=== PATIENT | female | born 1935 | race Caucasian/White ===

== ENCOUNTER 2021-07-22 20:50 | Emergency (ER) | payer MEDICARE ==
[~2021-07-22] VITALS: Ht 157.5 cm; Wt 65.0 kg
[~2021-07-22 20:50] MED LIST: LEVO25TA2 PO
[2021-07-22 21:13] VITALS: BP 153/68
[2021-07-22 21:50] LABS: BASOPHILS % (AUTO) 0.3 % (0-1); EOSINOPHILS % (AUTO) 0 % (0-6); HEMATOCRIT 40.3 % (35.0-45.0); HEMOGLOBIN 13.6 g/dl (12.0-16.0); LYMPHOCYTES # (AUTO) 0.4 X10'3 (1.1-4.8); LYMPHOCYTES % (AUTO) 8.5 % (21-51); MEAN CORPUSCULAR HEMOGLOBIN 30.3 PG (27.0-31.0); MEAN CORPUSCULAR HGB CONC 33.7 g/dL (33.0-36.5); MEAN CORPUSCULAR VOLUME 89.8 FL (78-98); MEAN PLATELET VOLUME 8.3 FL (7.4-10.4); MONOCYTES # (AUTO) 0.5 X10'3 (0-0.9); MONOCYTES % (AUTO) 10.3 % (2-12); NEUTROPHILS % (AUTO) 80.9 % (42-75); PLATELET COUNT 111 X10'3 (140-440); RED BLOOD COUNT 4.48 X10'6 (4.20-5.60); RED CELL DISTRIBUTION WIDTH 14.8 % (11.5-14.5); WHITE BLOOD COUNT 4.9 X10'3 (4.5-11.0)
[2021-07-22] MEDS ORDERED: normal saline 1000ML IV soln IVB ONE (21:55)
[2021-07-22 22:04] LABS: ALANINE AMINOTRANSFERASE 13 U/L (12-78); ALBUMIN 3.2 G/DL (3.4-5.0); ALBUMIN/GLOBULIN RATIO 0.7 (1.1-1.5); ALKALINE PHOSPHATASE 84 IU/L (46-116); ANION GAP 3 (8-16); ASPARTATE AMINO TRANSFERASE 25 U/L (10-37); BILIRUBIN,TOTAL 0.3 MG/DL (0.1-1.0); BLOOD UREA NITROGEN 25 MG/DL (7-18); BUN/CREATININE RATIO 19.7 (6.6-38.0); CALCIUM 8.7 MG/DL (8.5-10.1); CHLORIDE 97 MMOL/L (99-107); CREATININE 1.27 MG/DL (0.40-0.90); GLUCOSE 157 MG/DL (70-104); POTASSIUM 3.2 MMOL/L (3.5-5.1); SODIUM 124 MMOL/L (135-145); TOTAL CARBON DIOXIDE 24.1 MMOL/L (24-32); TOTAL PROTEIN 7.5 G/DL (6.4-8.2); eGFR 40 ML/MIN
[2021-07-22 22:35] LABS: MAGNESIUM 2.1 MG/DL (1.5-2.4)
[2021-07-22] MEDS ORDERED: sodium chloride 1gm tablet PO ONE (22:40)
[2021-07-22] MEDS ORDERED: potassium Cl 20 mEq SR tablet PO STA (22:43)
[2021-07-22] MEDS ORDERED: POTA20TA19 PO (23:24)
[2021-07-22] MEDS ORDERED: SODI100035 PO (23:24)
[2021-07-23 00:31] LABS: UA COLLECTION TYPE NON-SPECIFIED
[2021-07-23 00:32] LABS: CLARITY,URINE CLOUDY (Clear); COLOR,URINE YELLOW (Yellow); GLUCOSE, URINE NEGATIVE (Neg); PROTEIN,URINE 30 mg/dl (Neg)
[2021-07-23 00:33] LABS: KETONES,URINE NEGATIVE (Neg); LEUKOCYTE ESTERASE ,URINE SMALL (Neg); NITRITES, URINE POSITIVE (Neg); OCCULT BLOOD,URINE SMALL (Neg); UROBILINOGEN,URINE 0.2 E.U/dL (0.2-1.0)
[2021-07-23 00:52] LABS: SQUAMOUS EPITHELIAL CELL,UR MODERATE /LPF (FEW)
[2021-07-23 00:53] LABS: BACTERIA,URINE 4+ /HPF (Neg); HYALINE CASTS 0-3 /LPF (NEGATIVE)
[2021-07-23] MEDS ORDERED: CefTRIAXone/D5W-Rocephin 1gm 50 ML IV ONE (01:00)
[2021-07-23] MEDS ORDERED: CEPH250T PO (01:01)
--- NOTE | 2021-07-23 01:30 | NUR ---
Daughter is waiting in the waiting room for patient. She was updated on patient status and notified that she will be ready to go home after IV abx are finished.
[2021-07-24] MEDS ORDERED: AMOX-422 PO (19:45)
[2021-07-24] MEDS ORDERED: PRED20TA PO (19:45)
[2021-07-24] MEDS ORDERED: ONDA4TAB6 PO (22:04)
== END 2021-07-23 02:07 | disposition home or self-care (01) ==
LOC: ER 20:50
DX: U07.1 COVID-19 (principal); R19.7 Diarrhea, unspecified; E87.6 Hypokalemia; E87.1 Hypo-osmolality and hyponatremia; E86.0 Dehydration; N39.0 Urinary tract infection, site not specified; E03.9 Hypothyroidism, unspecified; Z72.89 Other problems related to lifestyle; Z90.49 Acquired absence of other specified parts of digestive tract; Z79.2 Long term (current) use of antibiotics; Z79.899 Other long term (current) drug therapy
CPT/HCPCS: 36415; 71045; 80053; 81001; 83735; 83880; 84145; 84443; 84484; 85025; 87077; 87088; 87186; 87635; 93005; 96361; 96365; 99285; C9803; J0696; J7030; 81003; 99283

== ENCOUNTER 2021-07-24 18:43 | Emergency (ER) | payer MEDICARE ==
[~2021-07-24] VITALS: Ht 157.5 cm; Wt 65.0 kg
[~2021-07-24 18:43] MED LIST changes: +CEPH250T PO; +POTA20TA19 PO; +SODI100035 PO
[2021-07-24] MEDS ORDERED: acetaminophen 325mg tablet PO ONE (19:10)
--- NOTE | 2021-07-24 19:16 | NUR ---
MARIA A DAUGHTER [phone]
[2021-07-24] MEDS ORDERED: normal saline 1000ml 1,000 ML IV ONE (19:25)
[2021-07-24] MEDS ORDERED: AMOX-422 PO (19:45)
[2021-07-24] MEDS ORDERED: PRED20TA PO (19:45)
[2021-07-24 19:47] LABS: BASOPHILS % (AUTO) 0.2 % (0-1); EOSINOPHILS % (AUTO) 0 % (0-6); HEMATOCRIT 40.8 % (35.0-45.0); HEMOGLOBIN 13.8 g/dl (12.0-16.0); LYMPHOCYTES # (AUTO) 0.5 X10'3 (1.1-4.8); LYMPHOCYTES % (AUTO) 10.6 % (21-51); MEAN CORPUSCULAR HEMOGLOBIN 30.2 PG (27.0-31.0); MEAN CORPUSCULAR HGB CONC 33.8 g/dL (33.0-36.5); MEAN CORPUSCULAR VOLUME 89.2 FL (78-98); MEAN PLATELET VOLUME 8.8 FL (7.4-10.4); MONOCYTES # (AUTO) 0.4 X10'3 (0-0.9); MONOCYTES % (AUTO) 8.9 % (2-12); NEUTROPHILS # (AUTO) 3.8 X10'3 (1.8-7.7); NEUTROPHILS % (AUTO) 80.3 % (42-75); PLATELET COUNT 102 X10'3 (140-440); RED BLOOD COUNT 4.57 X10'6 (4.20-5.60); RED CELL DISTRIBUTION WIDTH 14.3 % (11.5-14.5); WHITE BLOOD COUNT 4.7 X10'3 (4.5-11.0)
[2021-07-24 20:13] LABS: ALANINE AMINOTRANSFERASE 13 U/L (12-78); ALBUMIN 3.1 G/DL (3.4-5.0); ALBUMIN/GLOBULIN RATIO 0.7 (1.1-1.5); ALKALINE PHOSPHATASE 73 IU/L (46-116); ANION GAP 11 (8-16); ASPARTATE AMINO TRANSFERASE 35 U/L (10-37); BILIRUBIN,TOTAL 0.4 MG/DL (0.1-1.0); BLOOD UREA NITROGEN 18 MG/DL (7-18); BUN/CREATININE RATIO 14.6 (6.6-38.0); CALCIUM 8.8 MG/DL (8.5-10.1); CHLORIDE 104 MMOL/L (99-107); CREATININE 1.23 MG/DL (0.40-0.90); GLUCOSE 151 MG/DL (70-104); POTASSIUM 3.9 MMOL/L (3.5-5.1); SODIUM 139 MMOL/L (135-145); TOTAL CARBON DIOXIDE 24.2 MMOL/L (24-32); TOTAL PROTEIN 7.6 G/DL (6.4-8.2); eGFR 42 ML/MIN
[2021-07-24] MEDS ORDERED: CASIRIVIMAB/IMDEVIMAB inject. 10 ML in normal saline 100ml IV soln 100 ML IV ONE (20:25)
[2021-07-24] MEDS ORDERED: ONDA4TAB6 PO (22:04)
--- NOTE | 2021-07-24 22:07 | NUR ---
Tried calling family Deneen, twice. Family did not answer her phone. She is aware that patient is ready to be discharged. Unable to leave voice mail as voice box is full.
--- NOTE | 2021-07-24 22:32 | NUR ---
FAMILY NOT IN LOBBY DURING SECOND CALL
--- NOTE | 2021-07-24 22:33 | NUR ---
FAMILY NOT ANSWERING PHONE CALLS. VOICE MAIL BOX IS FULL.
[2021-07-24 23:32] VITALS: BP 153/80
== END 2021-07-24 23:05 | disposition home or self-care (01) ==
LOC: ER 18:45
DX: U07.1 COVID-19 (principal); R53.1 Weakness; R41.0 Disorientation, unspecified; E03.9 Hypothyroidism, unspecified; Z90.49 Acquired absence of other specified parts of digestive tract; Z79.2 Long term (current) use of antibiotics; Z79.899 Other long term (current) drug therapy
CPT/HCPCS: 36415; 71045; 80053; 83605; 83735; 84145; 85025; 87040; 93005; 96360; 96361; 99285; J7030; M0243; Q0244

== ENCOUNTER 2023-11-07 20:45 | Inpatient (IN) | payer BC, MEDICARE ==
[~2023-11-07] VITALS: Ht 157.5 cm; Wt 154.0 kg
[~2023-11-07 20:45] MED LIST changes: -CEPH250T PO; +ONDA4TAB6 PO; -POTA20TA19 PO
[2023-11-07 21:27] LABS: BASOPHILS % (AUTO) 0.4 % (0-1); EOSINOPHILS % (AUTO) 0 % (0-6); HEMATOCRIT 41.3 % (35.0-45.0); HEMOGLOBIN 13.9 g/dl (12.0-16.0); LYMPHOCYTES # (AUTO) 0.6 X10'3 (1.1-4.8); LYMPHOCYTES % (AUTO) 6.8 % (21-51); MEAN CORPUSCULAR HEMOGLOBIN 30.7 PG (27.0-31.0); MEAN CORPUSCULAR HGB CONC 33.7 g/dL (33.0-36.5); MEAN CORPUSCULAR VOLUME 91.1 FL (78-98); MEAN PLATELET VOLUME 8.5 FL (7.4-10.4); MONOCYTES # (AUTO) 1.3 X10'3 (0-0.9); MONOCYTES % (AUTO) 14.1 % (2-12); NEUTROPHILS # (AUTO) 7.1 X10'3 (1.8-7.7); NEUTROPHILS % (AUTO) 78.7 % (42-75); PLATELET COUNT 138 X10'3 (140-440); RED BLOOD COUNT 4.53 X10'6 (4.20-5.60)
[2023-11-07 21:41] LABS: ALANINE AMINOTRANSFERASE 9 U/L (12-78); ALBUMIN 3.1 G/DL (3.4-5.0); ALBUMIN/GLOBULIN RATIO 0.7 (1.1-1.5); ALKALINE PHOSPHATASE 81 IU/L (46-116); ANION GAP 11 (8-16); ASPARTATE AMINO TRANSFERASE 23 U/L (10-37); BILIRUBIN,TOTAL 0.5 MG/DL (0.1-1.0); BLOOD UREA NITROGEN 31 MG/DL (7-18); BUN/CREATININE RATIO 19.9 (10.0-20.0); CALCIUM 9.2 MG/DL (8.5-10.1); CHLORIDE 99 MMOL/L (99-107); CREATININE 1.56 MG/DL (0.40-0.90); GLUCOSE 149 MG/DL (70-104); POTASSIUM 3.8 MMOL/L (3.5-5.1); SODIUM 134 MMOL/L (135-145); TOTAL CARBON DIOXIDE 23.8 MMOL/L (24-32); TOTAL PROTEIN 7.8 G/DL (6.4-8.2); eCRCL 20 ML/MIN; eGFR 31 ML/MIN
[2023-11-07 21:51] LABS: THYROID STIMULATING HORMONE 15.21 ulU/ml (0.34-4.50)
[2023-11-07 23:59] LABS: BILIRUBIN,URINE NEGATIVE (Neg); CLARITY,URINE SLIGHTLY CLOUDY (Clear); COLOR,URINE YELLOW (Yellow); GLUCOSE, URINE NEGATIVE (Neg); KETONES,URINE 15 mg/dl (Neg); LEUKOCYTE ESTERASE ,URINE SMALL (Neg); NITRITES, URINE NEGATIVE (Neg); OCCULT BLOOD,URINE NEGATIVE (Neg); PH,URINE 5.5 (4.8-8.0); PROTEIN,URINE 30 mg/dl (Neg); UROBILINOGEN,URINE 0.2 E.U/dL (0.2-1.0)
[2023-11-08] VITALS (7 sets, daily range): BP systolic 134–178; BP diastolic 70–92; PULSE 66–70; RESP 13–17; TEMP 97.7–99; O2SAT 94–99
[2023-11-08] LABS: UA COLLECTION TYPE CLN CATCH MIDSTREAM
[2023-11-08 00:11] LABS: WBC,URINE 30-50 /HPF (0-4)
[2023-11-08 00:12] LABS: BACTERIA,URINE 3+ /HPF (Neg); MUCUS STRANDS NONE SEEN /LPF (Neg); RBC,URINE NONE SEEN /HPF (0-2); SQUAMOUS EPITHELIAL CELL,UR FEW /LPF (FEW)
[2023-11-08 01:13] LABS: FREE T4 (FREE THYROXINE) 0.78 NG/DL (0.73-1.40)
[2023-11-08] MEDS: acetaminophen 325mg tablet PO ONE (01:31)
[2023-11-08] MEDS: normal saline 1000ML IV soln IVB ONE (01:31)
[2023-11-08] MEDS ORDERED: magnesium hydroxide 30ml (MOM) UD suspension PO PRN ×2 (01:45→02:00)
[2023-11-08] MEDS ORDERED: potassium Cl 40MEQ/1/2NS 520ml 520 ML IV PRN (01:45)
[2023-11-08] MEDS ORDERED: diphenhydrAMINE 25mg capsule PO PRN ×2 (01:45→02:00)
[2023-11-08] MEDS ORDERED: magnesium 4gm in 100ml NS 100 ML IV PRN (01:45)
[2023-11-08] MEDS ORDERED: HYDROcodone/acetaminophen 5mg/325mg tablet PO PRN ×2 (01:45→02:00)
[2023-11-08] MEDS ORDERED: bisacodyl 10mg suppository rectal RC PRN ×2 (01:45→16:00)
[2023-11-08] MEDS ORDERED: ondansetron/PF 4mg/2ml inj IV PRN ×2 (01:45→02:00)
[2023-11-08] MEDS ORDERED: magnesium 2GM in 50ml NS 50 ML IV PRN (01:45)
[2023-11-08] MEDS ORDERED: acetaminophen 325mg tablet PO PRN ×3 (01:45→02:00)
[2023-11-08] MEDS ORDERED: diphenhydrAMINE 50 mg/ml inj IV PRN ×2 (01:45→02:00)
[2023-11-08] MEDS ORDERED: magnesium Cl slow-release 64mg tablet PO PRN (01:45)
[2023-11-08] MEDS ORDERED: acetaminophen 650mg rectal suppository RC PRN ×2 (01:45→02:00)
[2023-11-08] MEDS ORDERED: morphine 2 MG/ML inj. syringe IV PRN ×2 (01:45→02:00)
[2023-11-08] MEDS ORDERED: ondansetron 4mg rapidly disintigrating tab PO PRN ×2 (01:45→02:00)
[2023-11-08] MEDS ORDERED: mag hydrox/Alum hydrox/simeth 30ml oral suspension PO PRN ×2 (01:45→02:00)
[2023-11-08] MEDS ORDERED: normal saline 1000ml 1,000 ML IV SCH (02:00)
[2023-11-08] MEDS: normal saline 1000ml 1,000 ML IV SCH (02:14)
[2023-11-08] MEDS: CefTRIAXone/D5W-Rocephin 1gm 50 ML IV ONE (02:14)
[2023-11-08 03:41] LABS: HEMOGLOBIN A1C 6.3 % (4.5-6.2)
[2023-11-08 03:46] LABS: APTT 26 SECONDS (22-32); D-DIMER 1.52 MG/L FEU (0-0.50); PROTHROMBIN TIME 10.3 SECONDS (9.0-12.0)
[2023-11-08 04:00] LABS: CREATINE KINASE 127 U/L (26-192); LIPASE 24 U/L (16-77); PHOSPHORUS 3.9 MG/DL (2.3-4.5); POTASSIUM 3.7 MMOL/L (3.5-5.1); PRO BRAIN NATRIURETIC PEPTIDE 994 PG/ML (0-450)
[2023-11-08] MEDS ORDERED: dexamethasone 4mg/ml inj IV SCH (08:00)
[2023-11-08] MEDS: K and/or MAG REPLACEMENT MC SCH (08:00)
[2023-11-08] MEDS ORDERED: enoxaparin 30mg/0.3ml syringe SQ SCH (08:00)
[2023-11-08] MEDS ORDERED: docusate sod 100mg capsule PO SCH (08:00)
[2023-11-08] MEDS: levoTHYROXINE 75mcg tablet PO SCH (08:39)
[2023-11-08] MEDS: docusate sod 100mg capsule PO SCH (08:39)
[2023-11-08] MEDS: pantoprazole 40mg Tablet.DR PO SCH (08:40)
[2023-11-08] MEDS: heparin, porcine 5000 units/ml vial SQ SCH (08:40)
[2023-11-08] MEDS: azithromycin 250mg tablet PO SCH (09:42)
[2023-11-08] MEDS: CefTRIAXone/D5W-Rocephin 1gm 50 ML IV SCH (09:42)
[2023-11-08] MEDS ORDERED: temazepam 15mg capsule PO PRN (21:00)
[2023-11-09] MEDS: hydrALAZINE 20mg/ml inj. IV PRN (00:05)
[2023-11-09 01:30] VITALS: BP 135/72
[2023-11-09 06:00] VITALS: BP 123/72; PULSE 96; RESP 19; TEMP 100.5; O2SAT 94
[2023-11-09 06:25] LABS: BASOPHILS % (AUTO) 0.4 % (0-1); EOSINOPHILS # (AUTO) 0.1 X10'3 (0-0.9); EOSINOPHILS % (AUTO) 1.6 % (0-6); HEMATOCRIT 36.7 % (35.0-45.0); HEMOGLOBIN 12.1 g/dl (12.0-16.0); LYMPHOCYTES # (AUTO) 0.8 X10'3 (1.1-4.8); MEAN CORPUSCULAR HEMOGLOBIN 30.1 PG (27.0-31.0); MEAN CORPUSCULAR VOLUME 91.1 FL (78-98); MEAN PLATELET VOLUME 8.7 FL (7.4-10.4); MONOCYTES # (AUTO) 0.7 X10'3 (0-0.9); MONOCYTES % (AUTO) 13.8 % (2-12); NEUTROPHILS # (AUTO) 3.4 X10'3 (1.8-7.7); NEUTROPHILS % (AUTO) 67.2 % (42-75); PLATELET COUNT 115 X10'3 (140-440); RED BLOOD COUNT 4.03 X10'6 (4.20-5.60); RED CELL DISTRIBUTION WIDTH 15.1 % (11.5-14.5)
[2023-11-09 06:37] LABS: ALBUMIN 2.5 G/DL (3.4-5.0); ALBUMIN/GLOBULIN RATIO 0.6 (1.1-1.5); ALKALINE PHOSPHATASE 62 IU/L (46-116); ANION GAP 9 (8-16); ASPARTATE AMINO TRANSFERASE 24 U/L (10-37); BILIRUBIN,TOTAL 0.3 MG/DL (0.1-1.0); BLOOD UREA NITROGEN 24 MG/DL (7-18); BUN/CREATININE RATIO 25.5 (10.0-20.0); CALCIUM 8.6 MG/DL (8.5-10.1); CHLORIDE 105 MMOL/L (99-107); CREATININE 0.94 MG/DL (0.40-0.90); GLUCOSE 99 MG/DL (70-104); MAGNESIUM 1.9 MG/DL (1.5-2.4); POTASSIUM 3.8 MMOL/L (3.5-5.1); SODIUM 138 MMOL/L (135-145); TOTAL CARBON DIOXIDE 24.2 MMOL/L (24-32); eCRCL 34 ML/MIN; eGFR 56 ML/MIN
[2023-11-09 06:41] LABS: ALANINE AMINOTRANSFERASE < 6 U/L (12-78)
[2023-11-09 08:50] VITALS: RESP 18
[2023-11-09 10:00] VITALS: BP 126/80; PULSE 71; RESP 20; TEMP 99; O2SAT 94
[2023-11-09] MEDS ORDERED: LEVO750T68 PO (10:39)
== END 2023-11-09 13:40 | disposition home or self-care (01) | DRG 177 ==
LOC: ER 20:45 → UNDOADMIN 11-08 01:56 → ED HOLD 11-08 01:56 → ORTHO 4S 11-08 07:40
PROVIDERS: ADMIT Family Medicine; ATTEND Internal Medicine
DX: U07.1 COVID-19 (principal); G93.41 Metabolic encephalopathy; J69.0 Pneumonitis due to inhalation of food and vomit; I21.A1 Myocardial infarction type 2; R65.11 Systemic inflammatory response syndrome (SIRS) of non-infectious origin with acute organ dysfunction; N39.0 Urinary tract infection, site not specified; I13.0 Hypertensive heart and chronic kidney disease with heart failure and stage 1 through stage 4 chronic kidney disease, or unspecified chronic kidney disease; N17.9 Acute kidney failure, unspecified; E86.0 Dehydration; E78.5 Hyperlipidemia, unspecified; D69.6 Thrombocytopenia, unspecified; E03.9 Hypothyroidism, unspecified; E88.09 Other disorders of plasma-protein metabolism, not elsewhere classified; I50.9 Heart failure, unspecified; J06.9 Acute upper respiratory infection, unspecified; N18.9 Chronic kidney disease, unspecified; Z87.440 Personal history of urinary (tract) infections; Z87.442 Personal history of urinary calculi; Z87.891 Personal history of nicotine dependence; Z90.49 Acquired absence of other specified parts of digestive tract; Z91.199 Patient's noncompliance with other medical treatment and regimen due to unspecified reason
CPT/HCPCS: 36415; 70450; 71045; 71250; 74176; 80053; 81001; 81003; 82550; 83036; 83690; 83735; 83880; 84100; 84132; 84145; 84439; 84443; 84480; 84484; 85025; 85379; 85610; 85730; 87077; 87081; 87088; 87186; 93005; 96361; 96374; 99285; G0378; J0360; J0696; J1644; J7030

== ENCOUNTER 2024-09-10 13:24 | Outpatient (CLI) | payer BC ==
[~2024-09-10 13:24] MED LIST changes: -SODI100035 PO
== END 2024-09-10 23:59 | disposition home or self-care (01) ==
LOC: RAD 13:24
PROVIDERS: ATTEND Registered Nurse
DX: R06.02 Shortness of breath (principal)
CPT/HCPCS: 71046